=== PATIENT | female | born 1960 | race Two or more races ===

== ENCOUNTER → 2023-12-08 | Outpatient (CLI) | payer OTHER, SELFPAY ==
--- NOTE | 2023-12-07 07:15 | HIP_PTH ---
PATHOLOGY RESULTS PATIENT: JORGE KEITA LOC: [facility] U#:[id number] AGE/SX: 62/F ROOM: RE12/08/[address]: Dr. Rich Fernández MD : 1960 BED: DIS: 12/08/2023 SPEC #: [id number] RECD: 12/08/23 15:34 STATUS: BEN REAndrae #: [id number] ISAC: 12/07/23 07:[address]: Rich Fernández DEPT: SURGICAL PATHOLOGY RECD BY: Tressa Fisher ENTERED: 12/09/23 09:35 SP TYPE: TOTAL HIP OTHR DR: No Primary Care Phys Tissues: Hip, NOS Procedures: Decalcification bone/plaque Surgery Specimen Level IV HEADER OPERATION: Right total hip arthroplasty PRE-OP DIAGNOSIS: Right hip grade fourth primary osteoarthritis TISSUE SUBMITTED: Right hip MICROSCOPIC DIAGNOSIS Bone and tissue of Right hip, total hip resection: Severe degenerative joint disease. Mild synovial hyperplasia. AM: 12/14/2023 MICROSCOPIC DESCRIPTION Slides are reviewed. GROSS DESCRIPTION Received is one container labeled with the patient's name and designated bone and soft tissue right hip. The specimen consists of a brown deformed femoral head (with portion of femoral neck). The femoral head measures 5.0 x 5.0 x 4.0 cm (and the femoral neck measures 1.5 cm in length.) The piece of soft tissue is noted attached to the femoral head. The soft tissue measuring 4.0x 1.0 x 0.5. The articular surface displays prominent osteophyte formation, eburnation and bone erosion. Also present in the specimen container are multiple irregular fragments of bone reamings and pink-yellow soft tissue measuring in aggregate 3.5 x 3.5 x 1.0 cm. Reproductive Endocrinologist sections are submitted in two cassettes as follows: 1 - soft tissue, 2 - bone after decalcification. / JUDE/ 12/09/23 TC:5 CPT: 16309, 69055
== END | disposition home or self-care (01) ==
LOC: LABSPEC 16:05
PROVIDERS: Referring Provider Orthopaedic Surgery; Visit Provider Orthopaedic Surgery
DX: M16.11 Unilateral primary osteoarthritis, right hip (principal)
CPT/HCPCS: 88305; 88311